=== PATIENT | female | born 1930 | race Caucasian/White ===

== ENCOUNTER 2017-09-11 11:32 | Emergency (ER) | payer MEDICARE, OTHER ==
[2017-09-11] MEDS ORDERED: Ketorolac Tromethamine 30 MG/ML VIAL ONE (11:53)
--- NOTE | 2017-09-11 12:37 | RAD ---
RIGHT KNEE FOUR VIEWS: History: Pain. Comparison: None. FINDINGS: Severe lateral compartment degenerative change. Large volume osteophytes in all three compartments, t he largest in the bilateral patellofemoral compartments. There is mild genu valgus. No displaced fracture is appreciated. There is a linear area of sclerosis in the subcortical tibial plateau. IMPRESSION: 1. 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 2. Linear area of sclerosis in the subcortical lateral tibial plateau may be stress reaction. POS: DEEPAK
[2017-09-11] MEDS ORDERED: Dexamethasone 4 MG TAB ONE (12:48)
== END 2017-09-11 13:37 | disposition home or self-care (01) ==
LOC: ERS 11:32
DX: M17.11 Unilateral primary osteoarthritis, right knee (principal); E03.9 Hypothyroidism, unspecified; E78.5 Hyperlipidemia, unspecified; I10 Essential (primary) hypertension; F41.9 Anxiety disorder, unspecified; Z79.899 Other long term (current) drug therapy; Z79.82 Long term (current) use of aspirin
CPT/HCPCS: 96372; J1885; J8540

== ENCOUNTER 2018-08-28 14:26 | Inpatient (IN) | payer MEDICARE, OTHER ==
[2018-08-28 15:22] LABS: Hemoglobin 9.7 g/dL (12.0-16.0); Mean Corpuscular HGB CONC 32.8 g/dL (32.0-36.0); Mean Corpuscular Hemoglobin 31.2 pg (27.0-31.0); Mean Corpuscular Volume 94.9 fL (78.0-98.0); Mean Platelet Volume 8.8 fL (7.4-10.4); Platelet Count 171 thou/uL (130-400); RBC Distribution Width 11.2 % (11.5-14.5); Red Blood Cell (RBC) Count 3.12 mill/uL (4.20-5.40); White Blood Cell (WBC) Count 6.5 thou/uL (4.8-10.8)
[2018-08-28 15:38] LABS: ALT (SGPT) 13 U/L (8-55); AST (SGOT) 15 U/L (5-34); Alkaline Phosphatase 76 U/L (40-150); Anion Gap 15 mmol/L (10-20); BUN (Urea Nitrogen) 92 mg/dL (9.8-20.1); Bilirubin, Total 0.3 mg/dL (0.2-1.2); Calc. Creatinine Clearance 0 mL/min (70-130); Calcium 9.5 mg/dL (7.8-10.44); Carbon Dioxide 20 mmol/L (23-31); Chloride 106 mmol/L (98-107); Estimated GFR-MDRD 10; Globulin 2.9 g/dL (2.4-3.5); Glucose 96 mg/dL (83-110); Potassium 5.3 mmol/L (3.5-5.1); Protein, Total 6.9 g/dL (6.0-8.3); Sodium 136 mmol/L (136-145)
[2018-08-28 15:45] LABS: Band 4 % (5-11); Eosinophils 2 % (0-10); Lymphocytes 4 % (21-51); MDiff Complete? YES; Monocytes 9 % (0-10); Neutrophil 81 % (42-75); PLT Morphology Comment Appears Adequate
[2018-08-28 16:12] LABS: CK (CPK) 68 U/L (29-168); Lipase 212 U/L (8-78)
[2018-08-28 16:46] LABS: Bilirubin Negative (Negative); Blood, Urine Negative (Negative); Clarity CLOUDY (Clear); Glucose, Urine (Dipstick) Negative (Negative); Leukocyte Moderate (Negative); Nitrite Negative (Negative); Protein, Urine (Dipstick) Negative (Neg-Trace); Specific Gravity, Urine 1.013 (1.002-1.036); Urobilinogen 0.2 mg/dL (0.2-1.0)
[2018-08-28 16:49] LABS: Bacteria/HPF None Seen HPF (None Seen); Hyaline Casts/LPF 4-6 HYALINE CAST LPF (0-3 Hyaline); RBC/HPF 0-3 HPF (0-3)
--- NOTE | 2018-08-28 17:03 | RAD ---
RADIOGRAPH CHEST 1 VIEW: 08/28/18 HISTORY: 88-year-old female with dyspnea. FINDINGS: There is no air space density, pulmonary edema, or pneumothorax. The lateral costophrenic angles are sharp. IMPRESSION: No acute pulmonary findings. [place]ol[place] [] POS: DEEPAK
[2018-08-28] MEDS ORDERED: Sodium Bicarbonate 2.5 MEQ/5 ML VIAL ONE (17:06)
[2018-08-28] MEDS ORDERED: Dextrose 50% Abboject 50 ML SYRINGE ONE (17:07)
[2018-08-28] MEDS ORDERED: Calcium Chloride 1 GM/10 ML Abboject SYRINGE ONE ×2 (17:07→17:12)
[2018-08-28] MEDS ORDERED: Insulin Regular 300 UNITS/3 ML VIAL ONE (17:07)
[2018-08-28] MEDS ORDERED: Sodium Bicarb 50 MEQ/50 ML VIAL ONE (17:08)
[2018-08-28] MEDS ORDERED: Ondansetron ODT 4 MG TAB SL PRN (20:56)
[2018-08-28] MEDS ORDERED: Ondansetron PF 4 MG/2 ML Vial IVP PRN (20:56)
[2018-08-28] MEDS ORDERED: Acetaminophen 325 MG TAB PO PRN (22:27)
[2018-08-28] MEDS ORDERED: Sodium Chloride 0.45% 1,000 ML IV SCH (23:00)
[2018-08-29] MEDS: Sodium Chloride 0.9% 1,000 ML IV SCH ×2 (01:58→14:30)
--- NOTE | 2018-08-29 03:45 | HP ---
CHIEF COMPLAINT: Abnormal labs. HISTORY OF PRESENT ILLNESS: This patient is an 88-year-old female who apparently previously lived in [facility] and recently moved to the area to the [facility]. She has established with Dr. Earl Stokes as her PCP because he has a nurse practitioner who does home visits and can come see her at the [facility] where the patient reports that she had her usual physical with Dr. Stokes's nurse practitioner and had lab work done. Subsequently, she was called by Dr. Stokes's office indicating that her lab work indicated problems with her kidneys and that she should present to the emergency department. The patient is unaware of ever having had any problems with her kidneys. She is unaware of how she might have sustained any renal damage. The patient reports that she did have some diarrhea about a week before Thanksgiving, and then around the time of Thanksgiving, but subsequent to that, she has actually trended more toward constipation and this has not been an ongoing problem for her. As far as she knows, she is continuing to make urine of normal character and quantity. REVIEW OF SYSTEMS: GENERAL: The patient has some diminished hearing, uses hearing aid. She has diminished vision. Wears glasses. She believes her voice sounds unusual. She denies any problems with taste or smell. GI: She denies any problems with swallowing. She did have loose bowel movements about a month ago and subsequently was treated more toward constipation. CARDIOVASCULAR: No chest pain or palpitations. She does report some edema. PULMONARY: The patient reports very mild occasional cough, which she believes is allergies. Denies shortness of breath or wheezing. She denies dysuria, frequency, or nocturia. She unfortunately has had some incontinence in her hospital bed at the time of exam. SKIN: No rashes or lesions. NEUROLOGIC: No numbness, weakness, or tingling. PSYCHIATRIC: She denies anxiety or depression. ENDOCRINE: She denies polyuria or polydipsia. MUSCULOSKELETAL: The patient reports significant diffuse osteoarthritis pains from time to time. All other systems were reviewed and all pertinent positives and negatives noted in the history of present illness. PAST MEDICAL HISTORY: Hyperlipidemia, hypothyroidism, hypertension, anxiety. PAST SURGICAL HISTORY: Hysterectomy. FAMILY HISTORY: Her father of unknown reasons, but she states he had gone into a coma. Her mother had dementia. SOCIAL HISTORY: The patient is a nonsmoker, nondrinker, and nondrug user. She is . She lives at the [facility] and she typically ambulates with a walker. She cannot name a surrogate decision maker. Says she does not have children and she has one sibling who is a sister who did not name as a surrogate. Code status; the patient says that she does not want to have any resuscitative efforts because of her advanced age. ALLERGIES: NONE. CURRENT MEDICATIONS: 1. Turmeric 538 mg b.i.d. 2. Tagamet 1 p.o. daily p.r.n. 3. Aldactone 25 mg at bedtime. 4. Lisinopril 20 mg b.i.d. 5. Levothyroxine 75 mcg daily. 6. Lasix 40 mg at bedtime. 7. Diclofenac 75 mg b.i.d. 8. Carvedilol 25 mg b.i.d. 9. Atorvastatin 10 mg at bedtime. 10. Aspirin 81 mg daily. 11. Tylenol 650 mg q.6 hours p.r.n. PHYSICAL EXAMINATION: VITAL SIGNS: Temperature 97.6, pulse 81, respirations 18, O2 saturation 99% on room air, BP 134/63. GENERAL APPEARANCE: Age-appropriate female. She is in no distress. She is awake, alert, pleasant, and cooperative. She is generally oriented, but has a difficult time understanding "who I'm and what my role is" even after explanation. She appears to be modestly confused about some issues. HEENT: PERRL. No OP lesions. NECK: Supple and symmetric without lymphadenopathy, JVD, or bruits. HEART: Regular with 1 to 2/6 murmur at the upper sternal borders. LUNGS: Clear to auscultation bilaterally with good chest wall expansion and air exchange. ABDOMEN: Soft, nontender, and nondistended. Positive bowel sounds. No masses. No organomegaly. EXTREMITIES: Warm and dry. No cyanosis, clubbing or edema. NEUROLOGIC: The patient appears to be spontaneously moving all extremities with no focal deficits. PSYCHIATRIC: Again, the patient has some mild confusion, but is otherwise pleasant, has normal behavior. LABORATORY DATA: White count 6.5, hemoglobin 9.7, platelets 171, 81 neutrophils, 4 bands, 4 lymphocytes. Sodium 136, potassium 5.3, chloride 106, CO2 is 20, BUN 92, creatinine 4.15, glucose 96, calcium 9.5, AST 15, ALT 13. BNP 68.9. Albumin is 4.0, lipase 212. Urinalysis only notable for moderate leukocyte esterase, 11 to 20 white cells, 0 to 3 red cells, 7 to 10 squamous epithelials, and 4 to 6 hyaline casts. Chest x-ray is negative. EKG; sinus rhythm, 62 beats per minute, some left axis deviation and LVH. IMPRESSION AND PLAN: 1. Acute renal failure of unclear etiology. The patient does take PAT inhibitor and NSAIDs. Those will currently be held. She will get some fluids and will consult Nephrology. She has renal ultrasound pending. 2. Hyperkalemia. The patient received bicarbonates, insulin, dextrose, and calcium in the emergency department. We will hydrate and recheck these values in the morning. She also received 30 g of Kayexalate. 3. Diarrhea. This does not appear to be substantial and is largely resolved at this time. 4. Anemia. Suspect the patient may have some chronic underlying renal disease, although it is not known. We do not have any older labs for comparison. It is not warrant intervention at this time. 5. Hypertension. We will hold her PAT inhibitor. Otherwise, continue her home medications. 6. Hypothyroidism. Continue her home medications. 7. Hyperlipidemia. Continue with the atorvastatin. 8. Osteoarthritis. I am going to hold her indomethacin in light of her renal insufficiency as well. Job ID: [id number]
[2018-08-29 05:33] LABS: Anion Gap 13 mmol/L (10-20); BUN (Urea Nitrogen) 70 mg/dL (9.8-20.1); Calc. Creatinine Clearance 17 mL/min (70-130); Calcium 10.1 mg/dL (7.8-10.44); Carbon Dioxide 23 mmol/L (23-31); Chloride 108 mmol/L (98-107); Estimated GFR-MDRD 17; Glucose 94 mg/dL (83-110); Potassium 4.9 mmol/L (3.5-5.1); Sodium 139 mmol/L (136-145)
[2018-08-29] MEDS: Levothyroxine Sodium 75 MCG TAB PO SCH (06:01)
[2018-08-29] MEDS: Carvedilol 25 MG TAB PO SCH ×2 (08:43→17:06)
[2018-08-29] MEDS: Heparin 5,000 UNITS/ML VIAL SC SCH ×3 (08:44→20:21)
--- NOTE | 2018-08-29 11:10 | ULT ---
BILATERAL RENAL ULTRASOUND: Date: 08/29/18 HISTORY: 88-year-old female with acute renal insufficiency. FINDINGS: The right kidney measures 10.3 cm in length and the left kidney measures 10.2 cm in length. No focal mass or hydronephrosis is seen on either side. The urinary bladder is unremarkable. IMPRESSION: No evidence of high grade obstruction. POS: KATALINAH
--- NOTE | 2018-08-29 13:02 | PDOC.PN ---
- Subjective Encounter Start Date: 08/29/18 Encounter Start Time: 13:00 Patient seen and examined, no new issues or complaints, all questions answered. - Objective Resuscitation Status - Order Detail: 08/28/18 22:28 Resuscitation Status Routine Resuscitation Status: DNAR: NO Resuscitation Discussed with: Patient Vital Signs & Weight: Vital Signs (12 hours) Temp Pulse Resp BP Pulse Ox 08/29/18 11:42 98.4 F 71 18 99/44 L 94 L 08/29/18 08:35 98.8 F 75 18 112/56 L 95 08/29/18 04:00 97.6 F 75 16 134/59 L 93 L Weight Weight 159 lb 1 oz I&O: 08/28/18 08/29/18 08/30/18 06:59 06:59 06:59 Intake Total 850 Balance 850 Result Diagrams: 08/28/18 15:01 08/29/18 04:29 Additional Labs: Accuchecks 08/28/18 17:24 POC Glucose 98 Phys Exam - Physical Examination Constitutional: NAD HEENT: PERRLA, moist MMs, sclera anicteric Neck: no nodes, no JVD, supple Respiratory: no wheezing, no rales, no rhonchi Cardiovascular: RRR, no significant murmur, no rub Gastrointestinal: soft, non-tender, no distention, positive bowel sounds Musculoskeletal: no edema, pulses present Dx/Plan (1) Acute kidney injury Code(s): N17.9 - ACUTE KIDNEY FAILURE, UNSPECIFIED Status: Acute (2) Hyperkalemia Code(s): E87.5 - HYPERKALEMIA Status: Acute (3) Diarrhea Code(s): R19.7 - DIARRHEA, UNSPECIFIED Status: Acute (4) Anemia Code(s): D64.9 - ANEMIA, UNSPECIFIED Status: Acute - Plan * diarrhea improving, slowly advance diet * likely pre-renal TU, Cr dropping, labs improving * cont IVFs for now and current plan of care will DC IVFs once patient tolerating diet well * labs in AM * check iron studies as well * DC plans in 24-48hrs * case and plan d/w patient at length, she understood and agreed with this plan.
[2018-08-29 16:26] VITALS: BMI 29.0
[2018-08-29] MEDS: Furosemide 40 MG TAB PO SCH (20:21)
[2018-08-29] MEDS: Atorvastatin Calcium 10 MG TAB PO SCH (20:21)
[2018-08-30] MEDS: Sodium Chloride 0.9% 1,000 ML IV SCH ×2 (03:32→20:50)
[2018-08-30 05:21] LABS: Creatinine, Urine 39.92 mg/dL (47-110); Protein, Urine Random Quant Less than 10 mg/dL (1-14)
[2018-08-30] MEDS: Levothyroxine Sodium 75 MCG TAB PO SCH (05:47)
[2018-08-30 06:11] LABS: Anion Gap 9 mmol/L (10-20); BUN (Urea Nitrogen) 41 mg/dL (9.8-20.1); Calc. Creatinine Clearance 30 mL/min (70-130); Calcium 8.6 mg/dL (7.8-10.44); Carbon Dioxide 25 mmol/L (23-31); Chloride 110 mmol/L (98-107); Estimated GFR-MDRD 34; Glucose 90 mg/dL (83-110); Iron 74 ug/dL (50-170); Iron Binding Capacity, Total 210 mcg/dL (265-497); Potassium 4.6 mmol/L (3.5-5.1); Sodium 139 mmol/L (136-145)
[2018-08-30 07:19] LABS: Band 6 % (5-11); Eosinophils 6 % (0-10); Hemoglobin 9.2 g/dL (12.0-16.0); Lymphocytes 26 % (21-51); MDiff Complete? YES; Mean Corpuscular HGB CONC 32.9 g/dL (32.0-36.0); Mean Corpuscular Hemoglobin 31.3 pg (27.0-31.0); Mean Platelet Volume 8.7 fL (7.4-10.4); Monocytes 18 % (0-10); Neutrophil 44 % (42-75); Platelet Count 158 thou/uL (130-400); RBC Distribution Width 11.2 % (11.5-14.5); Red Blood Cell (RBC) Count 2.95 mill/uL (4.20-5.40); White Blood Cell (WBC) Count 5.5 thou/uL (4.8-10.8)
[2018-08-30] MEDS: Heparin 5,000 UNITS/ML VIAL SC SCH ×3 (10:01→19:28)
[2018-08-30] MEDS: Carvedilol 25 MG TAB PO SCH ×2 (10:01→16:59)
--- NOTE | 2018-08-30 12:48 | PDOC.PN ---
- Subjective Encounter Start Date: 08/30/18 Encounter Start Time: 12:46 Patient seen and examined, states she is not feeling well today, diarrhea present still but does state that its starting to take form. No other issues or complaints, all questions answered, no family at bedside. - Objective Resuscitation Status - Order Detail: 08/28/18 22:28 Resuscitation Status Routine Resuscitation Status: DNAR: NO Resuscitation Discussed with: Patient Vital Signs & Weight: Vital Signs (12 hours) Temp Pulse Resp BP Pulse Ox 08/30/18 08:20 99.7 F H 67 20 151/67 H 97 08/30/18 03:10 98 F 61 18 134/60 94 L Weight Admit Weight 159 lb 1 oz Weight 161 lb I&O: 08/29/18 08/30/18 08/31/18 06:59 06:59 06:59 Intake Total 850 2730 Output Total 50 Balance 850 2680 Result Diagrams: 08/30/18 04:52 08/30/18 04:52 Phys Exam - Physical Examination Constitutional: NAD HEENT: PERRLA, moist MMs, sclera anicteric, TM's clear Neck: no nodes, no JVD, supple Respiratory: no wheezing, no rales, no rhonchi Cardiovascular: RRR, no significant murmur, no rub Gastrointestinal: soft, non-tender, no distention, positive bowel sounds Musculoskeletal: no edema, pulses present Dx/Plan (1) Acute kidney injury Code(s): N17.9 - ACUTE KIDNEY FAILURE, UNSPECIFIED Status: Acute (2) Hyperkalemia Code(s): E87.5 - HYPERKALEMIA Status: Acute (3) Diarrhea Code(s): R19.7 - DIARRHEA, UNSPECIFIED Status: Acute (4) Anemia Code(s): D64.9 - ANEMIA, UNSPECIFIED Status: Acute - Plan * will get PT evaluation, patient stating she's having difficulty walking * diarrhea starting to improve, renal function improving * labs in AM for now * continue currentp [facility] of care * DC plans in 24-48hrs once PT evaluation completed, may need HHC for PT or inpatient rehab depending on evaluation * case and plan d/w patient at length, she understood and agreed with this plan
[2018-08-30] MEDS: Atorvastatin Calcium 10 MG TAB PO SCH (19:27)
[2018-08-30] MEDS: Furosemide 40 MG TAB PO SCH (19:27)
[2018-08-31] MEDS: Levothyroxine Sodium 75 MCG TAB PO SCH (06:02)
[2018-08-31] MEDS: Carvedilol 25 MG TAB PO SCH ×2 (09:30→16:53)
[2018-08-31] MEDS: Heparin 5,000 UNITS/ML VIAL SC SCH ×3 (09:31→21:03)
--- NOTE | 2018-08-31 12:44 | PDOC.PN ---
- Subjective Encounter Start Date: 08/31/18 Encounter Start Time: 12:42 Doing well overall. No new complaints. Has not had a BM for a couple of days. Does not feel any discomfort. Questions about OA tx. Not eating a lot, but adequate. Knows she needs to drink. - Objective Resuscitation Status - Order Detail: 08/28/18 22:28 Resuscitation Status Routine Resuscitation Status: DNAR: NO Resuscitation Discussed with: Patient Vital Signs & Weight: Vital Signs (12 hours) Temp Pulse Resp BP Pulse Ox 08/31/18 07:25 98.6 F 66 20 144/65 H 94 L 08/31/18 04:00 97.4 F L 65 18 145/66 H 96 Weight Admit Weight 159 lb 1 oz Weight 164 lb I&O: 08/30/18 08/31/18 09/01/18 06:59 06:59 06:59 Intake Total 2730 3305 Output Total 50 Balance 2680 3305 Result Diagrams: 08/30/18 04:52 08/30/18 04:52 Phys Exam - Physical Examination Constitutional: NAD Respiratory: no wheezing, no rales, no rhonchi, clear to auscultation bilateral Cardiovascular: RRR, no significant murmur Gastrointestinal: soft, non-tender, no distention, positive bowel sounds Musculoskeletal: no edema Dx/Plan (1) Osteoarthritis Code(s): M19.90 - UNSPECIFIED OSTEOARTHRITIS, UNSPECIFIED SITE Status: Acute (2) Acute kidney injury Code(s): N17.9 - ACUTE KIDNEY FAILURE, UNSPECIFIED Status: Acute (3) Anemia Code(s): D64.9 - ANEMIA, UNSPECIFIED Status: Acute (4) Diarrhea Code(s): R19.7 - DIARRHEA, UNSPECIFIED Status: Acute (5) Hyperkalemia Code(s): E87.5 - HYPERKALEMIA Status: Acute - Plan * Appreciate nephrology input. * Stop IVF and encouraged PO's. * Recheck labs in a.m. If ok, discharge. * Stay off of the ACEI for now. * Start Amlodipine for BP. * Recommended avoidance of NSAIDS for OA unless released by Dr. Stokes and Dr. Winter to use them.
[2018-08-31] MEDS: Sodium Chloride 0.9% 1,000 ML IV SCH (16:54)
[2018-08-31] MEDS: Atorvastatin Calcium 10 MG TAB PO SCH (21:03)
[2018-09-01] MEDS: Levothyroxine Sodium 75 MCG TAB PO SCH (05:20)
[2018-09-01 06:22] LABS: Anion Gap 12 mmol/L (10-20); BUN (Urea Nitrogen) 13 mg/dL (9.8-20.1); Calc. Creatinine Clearance 48 mL/min (70-130); Calcium 8.4 mg/dL (7.8-10.44); Carbon Dioxide 26 mmol/L (23-31); Chloride 104 mmol/L (98-107); Estimated GFR-MDRD 57; Glucose 95 mg/dL (83-110); Potassium 3.8 mmol/L (3.5-5.1); Sodium 138 mmol/L (136-145)
[2018-09-01] MEDS: Heparin 5,000 UNITS/ML VIAL SC SCH (08:26)
[2018-09-01] MEDS: Carvedilol 25 MG TAB PO SCH (08:26)
[2018-09-01 11:39] VITALS: BP 121/58; TEMP 98.2
--- NOTE | 2018-09-02 00:36 | DIS ---
DATE OF ADMISSION: 08/28/2018 DATE OF DISCHARGE: 09/01/2018 DISCHARGE DIAGNOSES: 1. Acute renal failure. 2. Hyperkalemia. 3. Diarrhea. 4. Anemia. 5. Hypertension. 6. Hypothyroidism. 7. Hyperlipidemia. 8. Osteoarthritis. HISTORY OF PRESENT ILLNESS: This patient is an 88-year-old female who presented via the emergency department. This patient was generally asymptomatic. However, she had a physical exam which included some lab work and the labs indicated that she was having some renal insufficiency. The patient was referred to the emergency department. Labs there indicated a BUN of 92 and a creatinine of 4.15. The patient had reported some mild intermittent diarrhea symptoms going on for the prior month, but was not eating and drinking great deal apparently and was felt to have likely prerenal azotemia. She was also noted to have a potassium of 5.3, likely related to renal insufficiency. She had some anemia, felt to be chronic in nature. HOSPITAL COURSE: The patient was admitted to the hospital. She was started on some IV hydration. Nephrology was consulted and Dr. Winter saw the patient. Over the following few days, the patient's renal function improved significantly simply with hydration. She remained largely asymptomatic. She had no bowel movements in the hospital, even though she was starting to eat and drink a bit better. Renal ultrasound showed no evidence of significant disease. Once her labs had normalized, the patient felt well. She was felt to be stable for discharge. PHYSICAL EXAMINATION: VITAL SIGNS: Temperature 98.2, pulse 68, respirations 17, O2 saturation 95% on room air, BP 121/58. GENERAL APPEARANCE: Age-appropriate female. She was in no distress. HEART: Regular rate and rhythm. LUNGS: Clear bilaterally. ABDOMEN: Soft, nontender, and nondistended. Positive bowel sounds. No masses. No organomegaly. EXTREMITIES: Warm and dry without edema. LABORATORY DATA: BUN was 13, creatinine 0.93. DISPOSITION: The patient lives in an independent living facility and felt comfortable going back there. She had home health prior and that would be continued. Her activity is as tolerated. She will be on a renal diet. She will continue home health with physical therapy. MEDICATIONS: Will include ; 1. Tagamet. 2. Aspirin. 3. Acetaminophen. 4. Levothyroxine. 5. Spironolactone. 6. Atorvastatin. 7. Lasix. 8. Carvedilol. 9. Turmeric. 10. She is to stop the lisinopril and she is to stop her diclofenac. The patient was instructed on this, otherwise see a discharge paperwork indicates she was to continue the anti-inflammatories. The patient understands that she is not to use those for concerns of her renal function unless she is released to do so by Dr. Stokes or Dr. Winter. She is to follow up with Dr. Stokes in [address] Winter next available appointment. She will continue with [facility] and she can return to the emergency department should she have any problems prior to that time. Job ID: [id number]
== END 2018-09-01 12:45 | disposition home health service (06) | DRG 684 ==
LOC: ERS 14:26 → 2NO 16:51
PROVIDERS: ADMIT Family Medicine; ATTEND Family Medicine
DX: N17.9 Acute kidney failure, unspecified (principal); E87.5 Hyperkalemia; R19.7 Diarrhea, unspecified; M19.90 Unspecified osteoarthritis, unspecified site; E78.5 Hyperlipidemia, unspecified; E03.9 Hypothyroidism, unspecified; I10 Essential (primary) hypertension; Z79.1 Long term (current) use of non-steroidal anti-inflammatories (NSAID); Z79.899 Other long term (current) drug therapy; Z79.82 Long term (current) use of aspirin
CPT/HCPCS: 36415; 36416; 71045; 76770; 80048; 80053; 81003; 81015; 82550; 82570; 82728; 83540; 83550; 83690; 83880; 84156; 85025; 87086; 87324; 87449; 93005; 96374; 96375; G8978-GP-CK; G8979-GP-CJ; J1644; J1815